=== PATIENT | male | born 1970 | race Caucasian/White ===

== ENCOUNTER 2023-05-03 18:01 | Inpatient (IN) ==
--- NOTE | 2023-05-03 18:11 | ED Triage Note ---
Date of Service May 03, 2023 History of Present Illness This patient was briefly evaluated while in triage. An abbreviated physical exam was performed. This patient is a 52-year-old Male who presents to the ED for evaluation of sent by Dr. Rosas vomiting x "a few days," anorexia dark brown no abdominal pain +ETOH, was drinking today - bourbon, heavy drinker on Suboxone Physical Exam GENERAL: ambulatory into triage, smells of ETOH, slurred speech CARDIOVASCULAR: RRR RESPIRATORY: CTA ABDOMEN: BS x 4. Nontender to palpation. Initial orders for labs and / or imaging were placed and patient was placed in the waiting area until a bed is available. Please see further documentation for the full ED course. MDM / Impression Impression Impression: Metabolic acidosis, increased anion gap (IAG), High serum osmolar gap, Hypoxia, Alcohol abuse with withdrawal
[2023-05-03] MEDS ORDERED: SODIUM CHLORIDE 0.9% 1000ML 1,000 ML IV SCH (18:12)
[2023-05-03 18:50] LABS: Appearance Urine Clear (Clear); Bacteria Urine Automated Negative (Negative); Blood Urine Negative (Negative); Color Urine Dark Yellow; Glucose Urine UA Negative (Negative); Ketones Urine 2+ (Negative); Leukocyte Esterase Urine Negative (Negative); Nitrite Urine Positive (Negative); Protein Urine Trace (Negative); RBC Urine Automated 0-4 /hpf (0-4); Specific Gravity Urine 1.015 (1.000-1.030); Urobilinogen Urine Negative (Negative)
[2023-05-03] MEDS ORDERED: ONDANSETRON INJ 2 MG/ML 2 ML VIAL IV STA (18:53)
[2023-05-03 18:54] LABS: Bilirubin Urine 1+ (Negative)
[2023-05-03 19:03] LABS: Albumin Globulin Ratio 1.4 (0.9-2); Albumin Level 3.7 gm/dl (3.4-5.0); Bilirubin,Total 2.7 mg/dl (0.2-1.0); Calcium 9.2 mg/dl (8.6-10.3); Creatinine Clr Calc Pharmacy 241.6 ml/min; Est GFR (African American) 146.5 ml/min; Est GFR (Non-African American) 126.4 ml/min; Globulin 2.7 gm/dl (2.5-4.0); Potassium 3.5 mmol/L (3.5-5.1); Total Protein 6.4 gm/dl (6.0-8.3)
[2023-05-03 19:12] LABS: Basophils # (auto) 0.04 K/uL (0-0.2); Basophils % (auto) 0.7 %; Eosinophils # (auto) 0.15 K/uL (0-0.50); Eosinophils % (auto) 2.7 %; Hematocrit (blood only) 31.4 % (42.0-52.0); Immature Granulocytes # (auto) 0.04 K/uL (0.01-0.20); Immature Granulocytes % (auto) 0.7 %; Lymphocytes # (auto) 0.72 K/uL (1.2-3.4); Lymphocytes % (auto) 12.8 %; Mean Corpuscular Hemoglobin 37.4 pg (25.0-34.0); Mean Corpuscular Volume 106.8 fL (80.0-100.0); Mean Platelet Volume 11.4 fL (9.4-12.4); Monocytes # (auto) 0.68 K/uL (0.11-0.59); Monocytes % (auto) 12.1 %; Platelet Count 67 K/uL (130-400); Platelet Estimate Decreased (Normal); Polychromasia 1+; RDW Standard Deviation 54.8 fL (36.4-46.3); Red Blood Count 2.94 M/uL (4.70-6.10); Stomatocytes 2+; White Blood Count 5.63 K/ul (4.8-10.8)
[2023-05-03 19:23] LABS: Partial Thromboplastin Ratio 0.9; Partial Thromboplastin Time 25.4 Seconds (21.0-31.0); Prothrombin Time 10.6 Seconds (9.0-12.0)
[2023-05-03 19:36] LABS: Magnesium 1.6 mg/dl (1.7-2.4)
[2023-05-03] MEDS ORDERED: OPTIRAY 320 500ml IV ONE (19:41)
[2023-05-03 19:57] LABS: Amphetamines+Metham, Urine Neg (Neg); Barbiturates, Urine Neg (Neg); Benzodiazepine, Urine Neg (Neg); Cocaine, Urine Neg (Neg); MDMA (Ecstacy), Urine Pos (Neg); Methadone, Urine Neg (Neg); Opiate, Urine Neg (Neg); Phencyclidine, Urine Neg (Neg)
[2023-05-03] MEDS ORDERED: LORazepam 2 MG/1 ML VIAL IV STA ×2 (20:04→21:38)
[2023-05-03] MEDS ORDERED: CEROVITE ADV FORMULA TAB PO STA (20:04)
[2023-05-03] MEDS ORDERED: THIAMINE HCL 100 MG, FOLIC ACID 1 MG in SODIUM CHLORIDE 0.9% 1000ML 1,000 ML IV STA (20:04)
[2023-05-03] MEDS ORDERED: FOMEPIZOLE 1,500MG/1.5ML VIAL IV STA (20:06)
--- NOTE | 2023-05-03 20:17 | CT Scan Report ---
Exam(s): CT HEAD Without Contrast EXAM: CT Head Without Intravenous Contrast CLINICAL HISTORY: Reason for exam: ams. TECHNIQUE: Axial computed tomography images of the head/brain without intravenous contrast. Automated exposure control was utilized for the study. A dose lowering technique was utilized adhering to the principles of ALARA. COMPARISON: No relevant prior studies available. FINDINGS: No acute intracranial hemorrhage. No midline shift or mass effect. The territorial reyez-white matter differentiation is maintained throughout. The ventricles and sulci are commensurate with age. The visualized orbits appear grossly unremarkable. The calvarium is intact. Paranasal sinus mucosal thickening. IMPRESSION: No acute intracranial hemorrhage, midline shift, or mass effect. Electronically signed by: Hammad Freeman MD 05/03/23 20:17 PM
--- NOTE | 2023-05-03 20:23 | CT Scan Report ---
Exam(s): CT ABDOMEN + PELVIS With Contrast IV Amt: 114ml optiray 320 EXAM: CT Abdomen and Pelvis With Intravenous Contrast CLINICAL HISTORY: Reason for exam: nv. TECHNIQUE: Axial computed tomography images of the abdomen and pelvis with intravenous contrast. Automated exposure control was utilized for the study. A dose lowering technique was utilized adhering to the principles of ALARA. CONTRAST: Patient received 114ml optiray 320 of IV contrast COMPARISON: No relevant prior studies available. FINDINGS: Lung bases: Unremarkable. No mass. No consolidation. ABDOMEN: Liver: Severe hepatic steatosis. Gallbladder and bile ducts: Unremarkable. No calcified stones. No ductal dilation. Pancreas: Unremarkable. No mass. No ductal dilation. Spleen: Unremarkable. No splenomegaly. Adrenals: Unremarkable. No mass. 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 RIGHT renal cysts measuring up to 15 mm. No hydronephrosis. Stomach and bowel: Unremarkable. No obstruction. No mucosal thickening. PELVIS: Appendix: No findings to suggest acute appendicitis. Bladder: Unremarkable. No mass. Reproductive: Unremarkable as visualized. ABDOMEN and PELVIS: Intraperitoneal space: Unremarkable. No free air. No significant fluid collection. Bones/joints: Degenerative changes of the spine. No acute fracture. No dislocation. Soft tissues: Unremarkable. Vasculature: Atherosclerotic changes of the aorta. No abdominal aortic aneurysm. Lymph nodes: Unremarkable. No enlarged lymph nodes. IMPRESSION: No acute diverticulitis. No small bowel obstruction. No free intraperitoneal air. Electronically signed by: Hammad Freeman MD 05/03/23 20:21 PM
--- NOTE | 2023-05-03 20:28 | CT Scan Report ---
Exam(s): CTA CHEST IV Amt: 114ml optiray 320 EXAM: CT Angiography Chest With Intravenous Contrast CLINICAL HISTORY: Reason for exam: hypoxia. TECHNIQUE: Axial computed tomographic angiography images of the chest with intravenous contrast. Automated exposure control was utilized for the study. A dose lowering technique was utilized adhering to the principles of ALARA. MIP reconstructed images were created and reviewed. COMPARISON: No relevant prior studies available. FINDINGS: LUNGS: No focal consolidation, pleural effusion, or pneumothorax. HEART: Within normal limits. VASCULATURE: No large or central pulmonary embolism. Evaluation is limited due to suboptimal contrast bolus timing. The need for repeat exam should be determined clinically. THYROID: Within normal limits. MEDIASTINUM + LYMPH NODES: There are no pathologically enlarged mediastinal, hilar, or axillary lymph nodes. SUPERIOR ABDOMEN: Severe hepatic steatosis. MUSCULOSKELETAL: Within normal limits. IMPRESSION: No large or central pulmonary embolism. Evaluation is limited due to suboptimal contrast bolus timing. The need for repeat exam should be determined clinically. No focal infiltrate, pleural effusion, or pneumothorax. Electronically signed by: Hammad Freeman MD 05/03/23 20:27 PM
[2023-05-03] MEDS ORDERED: FOMEPIZOLE IV ONE (20:30)
[2023-05-03] MEDS ORDERED: DEXTROSE 5% IV ONE (20:30)
[2023-05-03 20:53] LABS: Base Excess ABG -4.8 mEq/L (-9-1.8); HCO3 ABG 21 mmol/L (19-24); Oxygen Saturation ABG 97.1 % (90-95); PCO2 ABG 41 mmHg (35-46); PO2 ABG 91 mmHg (80-95); pH ABG 7.32 (7.35-7.45)
[2023-05-03 20:54] LABS: Allen Test Pos (Pos)
--- NOTE | 2023-05-03 21:32 | Emergency Department Note ---
History of Present Illness General Chief complaint: Vomiting Stated complaint: VOMITING, REF BY DOC Time Seen by Provider: 05/03/23 18:52 History of Present Illness Provider complaint: Nausea and vomiting Onset (ago): day(s) 2 52-year-old male presents emergency department with his parents who he calls his "roommates". Patient reports that he has been vomiting for the last 2 days. He reports that the vomit is very brown in nature. No hematemesis coffee-ground emesis or bilious vomiting. Patient reports he drinks alcohol daily. He reports 1 to 2 pints of bourbon daily. He reports that he uses a home breathalyzer that he owns to keep his alcohol level less than 100 so he can "function". Patient also reports some difficulty breathing. No cough. Home Medications Medication Instructions Recorded Confirmed Type buprenorphine 8 mg-naloxone 2 mg 1 ea buccal BID 01/27/20 05/03/23 History sublingual film allopurinol 300 mg tablet 300 mg PO DAILY #90 tabs 04/12/23 05/03/23 Rx bupropion HCl 150 mg tablet,12 hr 150 mg PO QPM 04/12/23 05/03/23 History sustained-release carvedilol 6.25 mg tablet 6.25 mg PO QPM 04/12/23 05/03/23 History cyanocobalamin (vitamin B-12) 500 mcg PO .TODAY 05/03/23 05/03/23 History 1,000 mcg tablet (Vitamin B-12) Allergies Allergy/AdvReac Type Severity Reaction Status Date / Time Penicillins Allergy Verified 04/12/23 13:57 Past Med/Surg History Medical History Hypercholesterolemia Hypertension URI (upper respiratory infection) Surgical History History of oral surgery History of vasectomy Status post LASIK surgery Family History Father Prostate cancer Grandfather (Maternal) Myocardial infarction Aneurysm Grandfather (Paternal) Myocardial infarction Denies family history of Ovarian cancer Breast cancer Colorectal cancer Social History (Updated 05/03/23 @ 21:38 by Ben Suazo MD) Smoking Status: Former smoker Second Hand Exposure: No; Do You Dip or Chew Tobacco: No; Hx Alcohol Use: Yes Alcohol type: hard liquor Alcohol Intake Frequency: 2-4 x/Month Alcohol Intake Frequency Comment: daily 1-2 pts Hx Substance Use: No marital status: Current Living Situation: Parent current occupational status: employed Feels Safe at Home: Yes caffeine: Yes Dental Care, Regularly: Yes Physical Activity Frequency: Daily Physical Activity Frequency Comment: Walking Seatbelt Use: always Sunscreen Use: No Physical Exam Vital Signs Vital Signs - 24 hr 05/03/23 18:08 05/03/23 19:16 05/03/23 19:15 Temperature 36.5 C Temperature Source Temporal Artery Scan Pulse Rate 125 H 117 H 117 H Respiratory Rate 20 13 Respiratory Effort / Characteristics Non-Labored Respiratory Depth Normal Blood Pressure 175/103 H 170/98 H Blood Pressure Mean 127 122 Pulse Oximetry 91 93 Oxygen Delivery Method Room Air Nasal Cannula Oxygen Flow Rate 2 Sepsis Recent Fever Within 48 Hours No Sepsis New/Unexplained Change in Mental Status N/A Sepsis Action Taken by Nursing No Action Required 05/03/23 19:15 05/03/23 19:30 05/03/23 20:03 Temperature Temperature Source Pulse Rate 117 H 133 H Respiratory Rate 17 21 Respiratory Effort / Characteristics Respiratory Depth Blood Pressure 174/99 H Blood Pressure Mean 124 Pulse Oximetry 88 L 95 Oxygen Delivery Method Room Air Nasal Cannula Oxygen Flow Rate 2 Sepsis Recent Fever Within 48 Hours Sepsis New/Unexplained Change in Mental Status Sepsis Action Taken by Nursing 05/03/23 20:30 05/03/23 21:00 05/03/23 21:30 Temperature Temperature Source Pulse Rate 125 H 123 H 118 H Respiratory Rate 23 15 14 Respiratory Effort / Characteristics Respiratory Depth Blood Pressure 169/102 H 153/87 H 150/86 H Blood Pressure Mean 124 109 107 Pulse Oximetry 95 91 93 Oxygen Delivery Method Nasal Cannula Nasal Cannula Nasal Cannula Oxygen Flow Rate 2 2 2 Sepsis Recent Fever Within 48 Hours Sepsis New/Unexplained Change in Mental Status Sepsis Action Taken by Nursing 05/03/23 22:00 05/03/23 22:30 05/03/23 23:19 Temperature Temperature Source Pulse Rate 118 H 120 H 120 H Respiratory Rate 15 17 Respiratory Effort / Characteristics Respiratory Depth Blood Pressure 168/92 H Blood Pressure Mean 117 Pulse Oximetry 95 94 Oxygen Delivery Method Nasal Cannula Nasal Cannula Oxygen Flow Rate 2 2 Sepsis Recent Fever Within 48 Hours Sepsis New/Unexplained Change in Mental Status Sepsis Action Taken by Nursing 05/03/23 23:00 05/03/23 23:30 Temperature Temperature Source Pulse Rate 121 H 121 H Respiratory Rate 17 15 Respiratory Effort / Characteristics Respiratory Depth Blood Pressure 172/93 H 155/90 H Blood Pressure Mean 119 111 Pulse Oximetry 95 93 Oxygen Delivery Method Nasal Cannula Nasal Cannula Oxygen Flow Rate 3 3 Sepsis Recent Fever Within 48 Hours Sepsis New/Unexplained Change in Mental Status Sepsis Action Taken by Nursing Physical Exam GENERAL: He is oriented to person, place, and time. He appears well-developed and well-nourished. He does not appear distressed. HENT: Exam performed. - Head: Normocephalic and atraumatic. - Right Ear: External ear normal. No mastoid erythema - Left Ear: External ear normal. No mastoid erythema EYES: Conjunctivae and EOM are normal. Pupils are equal, round, and reactive to light. Right eye exhibits no discharge. Left eye exhibits no discharge. No scleral icterus. NECK: Normal range of motion. Neck supple. No JVD present. No tracheal deviation and normal range of motion present. CV: Tachycardic rate, regular rhythm, normal heart sounds and intact distal puls es. There is no peripheral edema. Palpable radial pulses bue. PULM/CHEST: Effort normal and breath sounds normal. No respiratory distress. No stridor. He has no wheezes. He has no rales. ABD: The abdomen is soft. Bowel sounds are normal. He has no distension. No mass is present. There is no tenderness. There is no rebound, no guarding, no Owens's sign and no tenderness at McBurney's point. Rovsig negative. No fluid wave. MUSC/SKEL: Normal range of motion. There is no peripheral edema, tenderness or deformity. NEURO: He is alert and oriented to person, place, and time. He has normal strength. No cranial nerve deficit or sensory deficit. Coordination and gait normal. GCS eye subscore is 4. GCS verbal subscore is 5. GCS motor subscore is 6. Cerebellar tests wnl. SKIN: Skin is warm and dry. He is not diaphoretic. PSYCH: He has a normal mood and affect. Behavior is normal. Judgment and thought content normal. Course Course 1851: The patient was evaluated in room B11. A complete history and physical exam was performed Cardiac monitoring: An order was placed for continuous cardiac monitoring. The monitor shows a rate of 110 with sinus rhythm interpreted by me 1915: Patient became hypoxic on room air supplemental oxygen applied to the patient which improved his oxygen saturation. 1999: Patient became tachycardic into the 130s status post CT. Patient in no respiratory distress. Thought that the patient might be going through alcohol withdrawal Ativan given to the patient. 2029: Patient's heart rates improved slightly with Ativan. Patient states he feels better with Ativan. Labs show white blood cell count 5.63 hemoglobin 11 platelet count 67. Patient's metabolic profile shows a sodium of 132 chloride 88 bicarb 20 anion gap 24 BUN 7 creatinine 0.5. Serum osmolality was measured at 1.6. Serum osmolality calculated at 298.5 producing a osmolar gap of 17.5. Given the patient's history of alcoholism, elevated anion gap, and elevated osmolar gap, the patient was questioned about any toxic alcohol ingestion such as from antifreeze or when she wiper fluid. The patient and family at bedside adamantly denied this. However, given the patient's chronic alcoholism and these lab findings, the patient be treated with fomepizole. Patient will be treated with fomepizole 15 mg/kg IV loading dose. Spoke with pharmacy this and they will create the fomepizole bag. 2101: Vital signs stable on supplemental oxygen via nasal cannula. Patient's vital signs improved status post Ativan. Imaging shows no ICH, no large PE, CT of the abdomen pelvis negative. ABG shows a pH of 7.32. Send out labs for ethylene glycol and methanol ordered. Discussed the case with the [facility] hospitalist Dr. Zhao who will admit the patient to his service. The patient should get maintenance doses of fomepizole 10 mg/kg IV piggyback every 12 hours for four doses starting 12 hours after the loading dose. The fomepizole should continue until the ethylene glycol or methanol levels are confirmed to be less than 20. If there is more than 4 doses of maintanence fomepizole needed to be given the dose of fomepizole should be increased to 15 mg/kg every 12 hours. Administered Medications Discontinued Medications Fomepizole (Fomepizole 1 Gm/Ml 1.5 Gm Vial) 1,878 mg IV NOW STA Stop: 05/03/23 20:07 Last Admin: 05/03/23 20:46 Dose: Not Given Documented By: TAVON Sodium Chloride (Nss 1000ml) 1,000 mls @ 999 mls/hr IV .Q1H1M KAYLA Stop: 05/03/23 19:12 Last Infusion: 05/03/23 20:17 Dose: 0 mls/hr Documented By: Admin: 05/03/23 19:09 Dose: 999 mls/hr Documented By: TAVON Thiamine HCl 100 mg/ Folic (Acid 1 mg/ Sodium Chloride) 1,001.2 mls @ 500 mls/hr IV .Q2H1M STA; Protocol Stop: 05/03/23 22:04 Last Infusion: 05/03/23 23:37 Dose: 0 mls/hr Documented By: Admin: 05/03/23 21:21 Dose: 500 mls/hr Documented By: TAVON Fomepizole 1,878 mg/ Dextrose 101.878 mls @ 200 mls/hr IV NOW ONE Stop: 05/03/23 21:00 Last Infusion: 05/03/23 21:20 Dose: 0 mls/hr Documented By: Admin: 05/03/23 20:38 Dose: 200 mls/hr Documented By: TAVON Ioversol (Optiray 320 500ml) 114 ml IV ONCE ONE Stop: 05/03/23 19:42 Last Admin: 05/03/23 19:41 Dose: 114 ml Documented By: RAFY Lorazepam (Lorazepam 2 Mg/1 Ml Vial) 1 mg IV NOW STA Stop: 05/03/23 20:05 Last Admin: 05/03/23 20:38 Dose: 1 mg Documented By: TAVON Lorazepam (Lorazepam 2 Mg/1 Ml Vial) 1 mg IV NOW STA Stop: 05/03/23 21:39 Last Admin: 05/03/23 21:57 Dose: 1 mg Documented By: TAVON Multivitamins/Minerals (Cerovite Adv Formula Tab) 1 tab PO ONE STA Stop: 05/03/23 20:05 Last Admin: 05/03/23 20:39 Dose: 1 tab Documented By: TAVON Ondansetron HCl (Ondansetron Inj 2 Mg/Ml 2 Ml Vial) 4 mg IV NOW STA Stop: 05/03/23 18:54 Last Admin: 05/03/23 19:10 Dose: 4 mg Documented By: TAVON Critical Care Time Critical Care Time: Yes Total Critical Care Time: 50 I have personally spent greater than 50 minutes of critical care time in the direct management of this patient. This includes bedside care, interpretation of diagnostic studies, and testing, discussion with consultants, patient, and family members, and other required patient management activities. This 50 minutes is in excess of all separately billable procedures. Medical Decision Making Laboratory Data Attestation: I reviewed the patient's lab results. 05/03/23 18:23 05/03/23 18:23 Lab Results 05/03/23 05/03/23 05/03/23 Range/Units 17:23 18:23 18:23 WBC 5.63 (4.8-10.8) K/ul RBC 2.94 L (4.70-6.10) M/uL Hgb 11.0 L (14.0-18.0) g/dl Hct 31.4 L (42.0-52.0) % MCV 106.8 H (80.0-100.0) fL MCH 37.4 H (25.0-34.0) pg MCHC 35.0 (32.0-36.0) g/dL RDW Std Deviation 54.8 H (36.4-46.3) fL RDW Coeff of Jordan 14.0 (11.5-14.5) % Plt Count 67 L (130-400) K/uL MPV 11.4 (9.4-12.4) fL Immature Gran % (Auto) 0.7 % Neut % (Auto) 71.0 % Lymph % (Auto) 12.8 % Reynolds % (Auto) 12.1 % Eos % (Auto) 2.7 % Baso % (Auto) 0.7 % Neut # (Auto) 4.00 (1.40-6.50) K/uL Lymph # (Auto) 0.72 L (1.2-3.4) K/uL Reynolds # (Auto) 0.68 H (0.11-0.59) K/uL Eos # (Auto) 0.15 (0-0.50) K/uL Baso # (Auto) 0.04 (0-0.2) K/uL Immature Gran # (Auto) 0.04 (0.01-0.20) K/uL Platelet Estimate Decreased L (Normal) Polychromasia 1+ Stomatocytes 2+ PT 10.6 (9.0-12.0) Seconds INR 1.0 (0.9-1.1) APTT 25.4 (21.0-31.0) Seconds PTT Ratio 0.9 ABG pH 7.32 L (7.35-7.45) ABG pCO2 41 (35-46) mmHg ABG pO2 91 (80-95) mmHg ABG HCO3 21 (19-24) mmol/L ABG O2 Saturation 97.1 H (90-95) % ABG Base Excess -4.8 (-9-1.8) mEq/L Radhames Test Pos (Pos) Oxygen Given 4 L Sodium (136-145) mmol/L Potassium (3.5-5.1) mmol/L Chloride (98-107) mmol/L Carbon Dioxide (21-32) mmol/L Anion Gap (3-11) BUN (6-23) mg/dl Creatinine (0.6-1.4) mg/dl Est Cr Clr Drug Dosing ml/min Est GFR ( Amer) ml/min Est GFR (Non-Af Amer) ml/min BUN/Creatinine Ratio (10-20) Glucose (70-99(Fasting)) mg/dl Osmolality (280-300) mOsm/kg Calcium (8.6-10.3) mg/dl Magnesium (1.7-2.4) mg/dl Total Bilirubin (0.2-1.0) mg/dl AST (13-39) U/L ALT (7-52) U/L Alkaline Phosphatase (34-104) U/L Total Protein (6.0-8.3) gm/dl Albumin (3.4-5.0) gm/dl Globulin (2.5-4.0) gm/dl Albumin/Globulin Ratio (0.9-2) Lipase (11-82) U/L Urine Color Urine Appearance (Clear) Urine pH (4.5-7.5) Ur Specific [place] (1.000-1.030) Urine Protein (Negative) Urine Glucose (UA) (Negative) Urine Ketones (Negative) Urine Blood (Negative) Urine Nitrite (Negative) Urine Bilirubin (Negative) Urine Urobilinogen (Negative) Ur Leukocyte Esterase (Negative) Urine WBC (Auto) (0-5) /hpf Urine RBC (Auto) (0-4) /hpf U Hyaline Cast (Auto) (0-5) /lpf U Epithel Cells (Auto) (0-5) /lpf Urine Bacteria (Auto) (Negative) Urine Opiates Screen (Neg) Ur Methadone, Qual (Neg) Urine Barbiturates (Neg) Ur Phencyclidine (PCP) (Neg) U Amphetamin/Meth Scrn (Neg) MDMA (Ecstasy) Screen (Neg) U Benzodiazepines Scrn (Neg) Ur Cocaine Metabolite (Neg) U Marijuana (THC) Screen (Neg) Ethyl Alcohol mg/dL (<10.0) mg/dl SARS-CoV-2, RNA, NAAT (NEGATIVE) 05/03/23 05/03/23 05/03/23 Range/Units 18:23 18:23 18:23 WBC (4.8-10.8) K/ul RBC (4.70-6.10) M/uL Hgb (14.0-18.0) g/dl Hct (42.0-52.0) % MCV (80.0-100.0) fL MCH (25.0-34.0) pg MCHC (32.0-36.0) g/dL RDW Std Deviation (36.4-46.3) fL RDW Coeff of Jordan (11.5-14.5) % Plt Count (130-400) K/uL MPV (9.4-12.4) fL Immature Gran % (Auto) % Neut % (Auto) % Lymph % (Auto) % Reynolds % (Auto) % Eos % (Auto) % Baso % (Auto) % Neut # (Auto) (1.40-6.50) K/uL Lymph # (Auto) (1.2-3.4) K/uL Reynolds # (Auto) (0.11-0.59) K/uL Eos # (Auto) (0-0.50) K/uL Baso # (Auto) (0-0.2) K/uL Immature Gran # (Auto) (0.01-0.20) K/uL Platelet Estimate (Normal) Polychromasia Stomatocytes PT (9.0-12.0) Seconds INR (0.9-1.1) APTT (21.0-31.0) Seconds PTT Ratio ABG pH (7.35-7.45) ABG pCO2 (35-46) mmHg ABG pO2 (80-95) mmHg ABG HCO3 (19-24) mmol/L ABG O2 Saturation (90-95) % ABG Base Excess (-9-1.8) mEq/L Radhames Test (Pos) Oxygen Given Sodium 132 L (136-145) mmol/L Potassium 3.5 (3.5-5.1) mmol/L Chloride 88 L (98-107) mmol/L Carbon Dioxide 20 L (21-32) mmol/L Anion Gap 24 H (3-11) BUN 7 (6-23) mg/dl Creatinine 0.50 L (0.6-1.4) mg/dl Est Cr Clr Drug Dosing 241.6 ml/min Est GFR ( Amer) 146.5 ml/min Est GFR (Non-Af Amer) 126.4 ml/min BUN/Creatinine Ratio 14.0 (10-20) Glucose 86 (70-99(Fasting)) mg/dl Osmolality (280-300) mOsm/kg Calcium 9.2 (8.6-10.3) mg/dl Magnesium 1.6 L (1.7-2.4) mg/dl Total Bilirubin 2.7 H (0.2-1.0) mg/dl AST 147 H (13-39) U/L ALT 44 (7-52) U/L Alkaline Phosphatase 151 H (34-104) U/L Total Protein 6.4 (6.0-8.3) gm/dl Albumin 3.7 (3.4-5.0) gm/dl Globulin 2.7 (2.5-4.0) gm/dl Albumin/Globulin Ratio 1.4 (0.9-2) Lipase 19 (11-82) U/L Urine Color Dark Yellow Urine Appearance Clear (Clear) Urine pH 6.0 (4.5-7.5) Ur Specific [place] 1.015 (1.000-1.030) Urine Protein Trace H (Negative) Urine Glucose (UA) Negative (Negative) Urine Ketones 2+ H (Negative) Urine Blood Negative (Negative) Urine Nitrite Positive A (Negative) Urine Bilirubin 1+ H (Negative) Urine Urobilinogen Negative (Negative) Ur Leukocyte Esterase Negative (Negative) Urine WBC (Auto) 1-5 (0-5) /hpf Urine RBC (Auto) 0-4 (0-4) /hpf U Hyaline Cast (Auto) 5-10 H (0-5) /lpf U Epithel Cells (Auto) 10-20 H (0-5) /lpf Urine Bacteria (Auto) Negative (Negative) Urine Opiates Screen (Neg) Ur Methadone, Qual (Neg) Urine Barbiturates (Neg) Ur Phencyclidine (PCP) (Neg) U Amphetamin/Meth Scrn (Neg) MDMA (Ecstasy) Screen (Neg) U Benzodiazepines Scrn (Neg) Ur Cocaine Metabolite (Neg) U Marijuana (THC) Screen (Neg) Ethyl Alcohol mg/dL 126.4 H (<10.0) mg/dl SARS-CoV-2, RNA, NAAT (NEGATIVE) 05/03/23 05/03/23 05/03/23 Range/Units 18:23 19:07 19:20 WBC (4.8-10.8) K/ul RBC (4.70-6.10) M/uL Hgb (14.0-18.0) g/dl Hct (42.0-52.0) % MCV (80.0-100.0) fL MCH (25.0-34.0) pg MCHC (32.0-36.0) g/dL RDW Std Deviation (36.4-46.3) fL RDW Coeff of Jordan (11.5-14.5) % Plt Count (130-400) K/uL MPV (9.4-12.4) fL Immature Gran % (Auto) % Neut % (Auto) % Lymph % (Auto) % Reynolds % (Auto) % Eos % (Auto) % Baso % (Auto) % Neut # (Auto) (1.40-6.50) K/uL Lymph # (Auto) (1.2-3.4) K/uL Reynolds # (Auto) (0.11-0.59) K/uL Eos # (Auto) (0-0.50) K/uL Baso # (Auto) (0-0.2) K/uL Immature Gran # (Auto) (0.01-0.20) K/uL Platelet Estimate (Normal) Polychromasia Stomatocytes PT (9.0-12.0) Seconds INR (0.9-1.1) APTT (21.0-31.0) Seconds PTT Ratio ABG pH (7.35-7.45) ABG pCO2 (35-46) mmHg ABG pO2 (80-95) mmHg ABG HCO3 (19-24) mmol/L ABG O2 Saturation (90-95) % ABG Base Excess (-9-1.8) mEq/L Radhames Test (Pos) Oxygen Given Sodium (136-145) mmol/L Potassium (3.5-5.1) mmol/L Chloride (98-107) mmol/L Carbon Dioxide (21-32) mmol/L Anion Gap (3-11) BUN (6-23) mg/dl Creatinine (0.6-1.4) mg/dl Est Cr Clr Drug Dosing ml/min Est GFR ( Amer) ml/min Est GFR (Non-Af Amer) ml/min BUN/Creatinine Ratio (10-20) Glucose (70-99(Fasting)) mg/dl Osmolality 316 H (280-300) mOsm/kg Calcium (8.6-10.3) mg/dl Magnesium (1.7-2.4) mg/dl Total Bilirubin (0.2-1.0) mg/dl AST (13-39) U/L ALT (7-52) U/L Alkaline Phosphatase (34-104) U/L Total Protein (6.0-8.3) gm/dl Albumin (3.4-5.0) gm/dl Globulin (2.5-4.0) gm/dl Albumin/Globulin Ratio (0.9-2) Lipase (11-82) U/L Urine Color Urine Appearance (Clear) Urine pH (4.5-7.5) Ur Specific [place] (1.000-1.030) Urine Protein (Negative) Urine Glucose (UA) (Negative) Urine Ketones (Negative) Urine Blood (Negative) Urine Nitrite (Negative) Urine Bilirubin (Negative) Urine Urobilinogen (Negative) Ur Leukocyte Esterase (Negative) Urine WBC (Auto) (0-5) /hpf Urine RBC (Auto) (0-4) /hpf U Hyaline Cast (Auto) (0-5) /lpf U Epithel Cells (Auto) (0-5) /lpf Urine Bacteria (Auto) (Negative) Urine Opiates Screen Neg (Neg) Ur Methadone, Qual Neg (Neg) Urine Barbiturates Neg (Neg) Ur Phencyclidine (PCP) Neg (Neg) U Amphetamin/Meth Scrn Neg (Neg) MDMA (Ecstasy) Screen Pos H (Neg) U Benzodiazepines Scrn Neg (Neg) Ur Cocaine Metabolite Neg (Neg) U Marijuana (THC) Screen Neg (Neg) Ethyl Alcohol mg/dL (<10.0) mg/dl SARS-CoV-2, RNA, NAAT NEGATIVE (NEGATIVE) Imaging Data Attestation: I personally reviewed and interpreted this imaging study as follows: My Impression: Chest x-ray negative. Airway clear. No pneumothorax. No consolidation. No cardiomegaly or cephalization.. No free air under the diaphragm. No fractures of the skeletal structures. Radiologist's Impression: Abdomen/Pelvis CT 05/03/23 19:20 Exam(s): CT ABDOMEN + PELVIS With Contrast IV Amt: 114ml optiray 320 EXAM: CT Abdomen and Pelvis With Intravenous Contrast CLINICAL HISTORY: Reason for exam: nv. TECHNIQUE: Axial computed tomography images of the abdomen and pelvis with intravenous contrast. Automated exposure control was utilized for the study. A dose lowering technique was utilized adhering to the principles of ALARA. CONTRAST: Patient received 114ml optiray 320 of IV contrast COMPARISON: No relevant prior studies available. FINDINGS: Lung bases: Unremarkable. No mass. No consolidation. ABDOMEN: Liver: Severe hepatic steatosis. Gallbladder and bile ducts: Unremarkable. No calcified stones. No ductal dilation. Pancreas: Unremarkable. No mass. No ductal dilation. Spleen: Unremarkable. No splenomegaly. Adrenals: Unremarkable. No mass. 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 RIGHT renal cysts measuring up to 15 mm. No hydronephrosis. Stomach and bowel: Unremarkable. No obstruction. No mucosal thickening. PELVIS: Appendix: No findings to suggest acute appendicitis. Bladder: Unremarkable. No mass. Reproductive: Unremarkable as visualized. ABDOMEN and PELVIS: Intraperitoneal space: Unremarkable. No free air. No significant fluid collection. Bones/joints: Degenerative changes of the spine. No acute fracture. No dislocation. Soft tissues: Unremarkable. Vasculature: Atherosclerotic changes of the aorta. No abdominal aortic aneurysm. Lymph nodes: Unremarkable. No enlarged lymph nodes. IMPRESSION: No acute diverticulitis. No small bowel obstruction. No free intraperitoneal air. Electronically signed by: Hammad Freeman MD 05/03/23 20:21 PM Chest CTA 05/03/23 19:20 Exam(s): CTA CHEST IV Amt: 114ml optiray 320 EXAM: CT Angiography Chest With Intravenous Contrast CLINICAL HISTORY: Reason for exam: hypoxia. TECHNIQUE: Axial computed tomographic angiography images of the chest with intravenous contrast. Automated exposure control was utilized for the study. A dose lowering technique was utilized adhering to the principles of ALARA. MIP reconstructed images were created and reviewed. COMPARISON: No relevant prior studies available. FINDINGS: LUNGS: No focal consolidation, pleural effusion, or pneumothorax. HEART: Within normal limits. VASCULATURE: No large or central pulmonary embolism. Evaluation is limited due to suboptimal contrast bolus timing. The need for repeat exam should be determined clinically. THYROID: Within normal limits. MEDIASTINUM + LYMPH NODES: There are no pathologically enlarged mediastinal, hilar, or axillary lymph nodes. SUPERIOR ABDOMEN: Severe hepatic steatosis. MUSCULOSKELETAL: Within normal limits. IMPRESSION: No large or central pulmonary embolism. Evaluation is limited due to suboptimal contrast bolus timing. The need for repeat exam should be determined clinically. No focal infiltrate, pleural effusion, or pneumothorax. Electronically signed by: Hammad Freeman MD 05/03/23 20:[address] 05/03/23 19:36 Exam(s): CT HEAD Without Contrast EXAM: CT Head Without Intravenous Contrast CLINICAL HISTORY: Reason for exam: ams. TECHNIQUE: Axial computed tomography images of the head/brain without intravenous contrast. Automated exposure control was utilized for the study. A dose lowering technique was utilized adhering to the principles of ALARA. COMPARISON: No relevant prior studies available. FINDINGS: No acute intracranial hemorrhage. No midline shift or mass effect. The territorial reyez-white matter differentiation is maintained throughout. The ventricles and sulci are commensurate with age. The visualized orbits appear grossly unremarkable. The calvarium is intact. Paranasal sinus mucosal thickening. IMPRESSION: No acute intracranial hemorrhage, midline shift, or mass effect. Electronically signed by: Hammad Freeman MD 05/03/23 20:17 PM [facility] Narrative 1852: The patient was evaluated in room B11. A complete history and physical exam was performed Cardiac monitoring: An order was placed for continuous cardiac monitoring. The monitor shows a rate of 110 with sinus rhythm interpreted by me 1915: Patient became hypoxic on room air supplemental oxygen applied to the patient which improved his oxygen saturation. 1999: Patient became tachycardic into the 130s status post CT. Patient in no respiratory distress. Thought that the patient might be going through alcohol withdrawal Ativan given to the patient. 2029: Patient's heart rates improved slightly with Ativan. Patient states he feels better with Ativan. Labs show white blood cell count 5.63 hemoglobin 11 platelet count 67. Patient's metabolic profile shows a sodium of 132 chloride 88 bicarb 20 anion gap 24 BUN 7 creatinine 0.5. Serum osmolality was measured at 1.6. Serum osmolality calculated at 298.5 producing a osmolar gap of 17.5. Given the patient's history of alcoholism, elevated anion gap, and elevated osmolar gap, the patient was questioned about any toxic alcohol ingestion such as from antifreeze or when she wiper fluid. The patient and family at bedside adamantly denied this. However, given the patient's chronic alcoholism and these lab findings, the patient be treated with fomepizole. Patient will be treated with fomepizole 15 mg/kg IV loading dose. Spoke with pharmacy this and they will create the fomepizole bag. 2101: Vital signs stable on supplemental oxygen via nasal cannula. Patient's vital signs improved status post Ativan. Imaging shows no ICH, no large PE, CT of the abdomen pelvis negative. ABG shows a pH of 7.32. Send out labs for et hylene glycol and methanol ordered. Discussed the case with the [facility] hospitalist Dr. Zhao who will admit the patient to his service. The patient should get maintenance doses of fomepizole 10 mg/kg IV piggyback every 12 hours for four doses starting 12 hours after the loading dose. The fomepizole should continue until the ethylene glycol or methanol levels are confirmed to be less than 20. If there is more than 4 doses of maintanence fomepizole needed to be given the dose of fomepizole should be increased to 15 mg/kg every 12 hours. Impression & Plan Metabolic acidosis, increased anion gap (IAG), High serum osmolar gap, Hypoxia, Alcohol abuse with withdrawal Discharge Plan Visit Data Chief Complaint: Vomiting Stated Complaint: VOMITING, REF BY DOC ED Provider: Ben Suazo Discharge Problem: Metabolic acidosis, increased anion gap (IAG), High serum osmolar gap, Hypoxia, Alcohol abuse with withdrawal Patient Disposition: Admitted As Inpatient Forms Stand Alone Forms: My [facility] Prescriptions Prescriptions: No Action bupropion HCl 150 mg tablet sustained-release 12 hr 150 mg PO QPM carvedilol 6.25 mg tablet 6.25 mg PO QPM Rx Instructions: must administer with a meal/food allopurinol 300 mg tablet 300 mg PO DAILY Qty: 90 3RF buprenorphine-naloxone 8-2 mg film 1 ea BUCCAL BID Patient Comments: Take 1/2 film strip sublingually twice daily cyanocobalamin (vitamin B-12) [Vitamin B-12] 1,000 mcg Tablet 500 mcg PO .TODAY Referrals Referrals: Soni Rosas MD [Primary Care Provider] -
[2023-05-04] MEDS ORDERED: ACETAMINOPHEN 325 MG TAB PO PRN (01:07)
[2023-05-04] MEDS ORDERED: ALUMINUM/MAGNESIUM SUSP 30 ML UDC PO PRN (01:07)
--- NOTE | 2023-05-04 06:08 | History & Physical Report ---
Date of Service May 04, 2023 Assessment & Plan (1) Acute alcoholic gastritis: Plan: Patient presents with refractory nausea and vomiting and vomiting brown vomitus. Hemoglobin stable at 11. Obtain follow-up CBC in a.m. No evidence of acute bleed at this time but patient could have underlying acute gastritis Start patient on IV PPI therapy with Protonix. If a.m. CBC shows any evidence of acute bleed, consult GI in a.m. (2) Metabolic acidosis, increased anion gap (IAG): Plan: Patient found to have elevated anion gap of 24 with metabolic acidosis. Likely secondary to volume depletion. Patient also found to have osmolar gap and being treated with fomepizole. (3) High serum osmolar gap: Plan: Patient measured osmolality 316 calculated osmolality is 299 producing osmolar gap of 17 Patient has a history of alcohol dependence and the presence of elevated anion gap and elevated osmolar gap, possible ethylene glycol or other alcohol ingestion suspected and patient was given a dose of fomepizole in the ED. Ethylene glycol level sent. Remaining dose of fomepizole 10 mg/kg dose every 12 hours for 4 doses to be continued every 12 hours after the loading dose. Discussed with pharmacy regarding this Fortunately renal function within normal limits goes against any ethylene glycol toxicity at this time. (4) Alcohol abuse with withdrawal: Plan: Patient admits to daily alcohol consumption Patient will be placed on CIWA protocol with close monitoring IV Protonix for acute gastritis Check CBC in a.m. (5) Elevated transaminase level: Plan: Patient found to have elevated transaminase level with AST being 147 and ALT being 44 consistent with alcohol use. Alcohol cessation discussed with patient (6) Benign essential hypertension: Plan: Continue home dose of carvedilol . Monitor blood pressure trend and titrate meds as tolerated. (7) Gout: Plan: No evidence of acute exacerbation noted continue allopurinol at home dose Check uric acid level Admission and Anticipated Discharge Date Admission Date: May 03, 2023 History of Present Illness Chief Complaint: Patient presents to ED with nausea and vomiting Primary Care Provider: Soni Rosas MD This is a 52-year-old male with past medical history significant history of hyp ertension, hyperuricemia, history of alcohol dependence who presents to the emergency department complaints of refractory nausea and vomiting symptoms. Patient reports that he has been having significant nausea with vomiting symptoms over the past 2 days and this is turned to brown vomitus and hence patient became concerned and presents to ED for further evaluation. Patient admits to alcohol consumption on a daily basis and he consumes almost a pint of bourbon every day. Patient denies any active hematemesis or bilious vomiting and also reports that he uses a breathalyzer at home to keep his alcohol level less than 100 but continues to consume alcohol on a daily basis so he can function including drive safely. Patient otherwise denies any chest pain but describes exertional dyspnea symptoms. No fevers or chills reported. Patient was evaluated in the ED and his initial labs shows a sodium level of 132 along with a hemoglobin of 11 and patient was found to have anion gap of 24 along with a osmolar gap in the ED and was given a dose of fomepizole for suspected ethylene glycol consumption. Patient however denies taking any other alcohol other than his bourbon. Allergies Allergy/AdvReac Type Severity Reaction Status Date / Time Penicillins Allergy Verified 04/12/23 13:57 Home Medications Medication Instructions Recorded Confirmed Type buprenorphine 8 mg-naloxone 2 mg 1 ea buccal BID 01/27/20 05/03/23 History sublingual film allopurinol 300 mg tablet 300 mg PO DAILY #90 tabs 04/12/23 05/03/23 Rx bupropion HCl 150 mg tablet,12 hr 150 mg PO QPM 04/12/23 05/03/23 History sustained-release carvedilol 6.25 mg tablet 6.25 mg PO QPM 04/12/23 05/03/23 History cyanocobalamin (vitamin B-12) 500 mcg PO .TODAY 05/03/23 05/03/23 History 1,000 mcg tablet (Vitamin B-12) Past Med/Surg History Medical History Hypercholesterolemia Hypertension URI (upper respiratory infection) Surgical History History of oral surgery History of vasectomy Status post LASIK surgery Family History Father Prostate cancer Grandfather (Maternal) Myocardial infarction Aneurysm Grandfather (Paternal) Myocardial infarction Denies family history of Ovarian cancer Breast cancer Colorectal cancer Social History (Updated 05/03/23 @ 21:38 by Ben Suazo MD) Smoking Status: Former smoker Second Hand Exposure: No; Do You Dip or Chew Tobacco: No; Hx Alcohol Use: Yes Alcohol type: hard liquor Alcohol Intake Frequency: 2-4 x/Month Alcohol Intake Frequency Comment: daily 1-2 pts Hx Substance Use: No Preferred Language: Hebrew Communication Ability: Effective Training Administrator Required: No Beliefs That Will Affect Care: None marital status: Current Living Situation: Parent Current Living Situation Comment: Living w parents current occupational status: employed Other Information That Helps Us Care for You: No Feels Safe at Home: Yes Safety Concerns: Feels Safe At This Time caffeine: Yes Dental Care, Regularly: Yes Physical Activity Frequency: Daily Physical Activity Frequency Comment: Walking Seatbelt Use: always Sunscreen Use: No Assistive Devices: Denture - Upper and Glasses Assistive Devices Comment: used to wear CPAP Review of Systems Review of Systems: Constitutional-no fever or chills ENT-no blurred vision, no double vision, no epistaxis, Respiratory- mild shortness of breath noted with exertion. No wheezing Cardiac-no palpitations, no chest pain, no syncope GI- pt reports nausea and vomiting, NO diarrhea, melena, -no urinary retention, no urinary incontinence, Musculoskeletal-no joint pain, Skin-no bruising, no rashes, no pruritus Neuro-no isolated weakness, Physical Exam Physical Exam: Head and ENT no thyroid enlargement trachea midline Cardiovascular S1-S2 are normal no S3 Lungs bilateral air entry fair no wheezing Abdomen soft nondistended positive bowel sounds no rebound tenderness Extremity shows minimal edema Neurologically no focal deficits mild asterixis Skin shows no rash no cyanosis Results & Data Results & Data Vital Signs (Past 12 Hours) Vital Signs Temp Pulse Pulse Resp BP BP Pulse Ox 05/04/23 01:12 05/04/23 03:53 37.4 C 130 H 18 173/84 H 92 05/04/23 01:12 37.1 C 124 H 20 175/107 H 90 05/04/23 00:30 123 H 15 160/96 H 92 05/04/23 00:00 123 H 16 160/96 H 92 05/03/23 23:30 121 H 15 155/90 H 93 05/03/23 23:00 121 H 17 172/93 H 95 05/03/23 23:19 120 H 05/03/23 22:30 120 H 17 168/92 H 94 05/03/23 22:00 118 H 15 95 05/03/23 21:30 118 H 14 150/86 H 93 05/03/23 21:00 123 H 15 153/87 H 91 05/03/23 20:30 125 H 23 169/102 H 95 05/03/23 20:03 133 H 21 05/03/23 19:30 117 H 17 174/99 H 95 05/03/23 19:15 88 L 05/03/23 19:15 117 H 05/03/23 19:16 117 H 13 170/98 H 93 O2 Del Method O2 Flow Rate 05/04/23 01:12 Nasal Cannula 3 05/04/23 03:53 Nasal Cannula 2 05/04/23 01:12 Nasal Cannula 3 05/04/23 00:30 Nasal Cannula 3 05/04/23 00:00 Nasal Cannula 3 05/03/23 23:30 Nasal Cannula 3 05/03/23 23:00 Nasal Cannula 3 05/03/23 23:19 05/03/23 22:30 Nasal Cannula 2 05/03/23 22:00 Nasal Cannula 2 05/03/23 21:30 Nasal Cannula 2 05/03/23 21:00 Nasal Cannula 2 05/03/23 20:30 Nasal Cannula 2 05/03/23 20:03 05/03/23 19:30 Nasal Cannula 2 05/03/23 19:15 Room Air 05/03/23 19:15 05/03/23 19:16 Nasal Cannula 2 Laboratory Results Short CBC 05/03/23 Range/Units 18:23 WBC 5.63 (4.8-10.8) K/ul Hgb 11.0 L (14.0-18.0) g/dl Hct 31.4 L (42.0-52.0) % Plt Count 67 L (130-400) K/uL BMP 05/03/23 18:23 Sodium 132 L Potassium 3.5 Chloride 88 L Carbon Dioxide 20 L BUN 7 Creatinine 0.50 L Glucose 86 Calcium 9.2 Liver Function 05/03/23 Range/Units 18:23 Total Bilirubin 2.7 H (0.2-1.0) mg/dl AST 147 H (13-39) U/L ALT 44 (7-52) U/L Alkaline Phosphatase 151 H (34-104) U/L Albumin 3.7 (3.4-5.0) gm/dl Urine 05/03/23 Range/Units 18:23 Urine Color Dark Yellow Urine Appearance Clear (Clear) Urine pH 6.0 (4.5-7.5) Ur Specific [place] 1.015 (1.000-1.030) Urine Protein Trace H (Negative) Urine Glucose (UA) Negative (Negative) Diagnostic Findings Abdomen/Pelvis CT 05/03/23 19:20 Exam(s): CT ABDOMEN + PELVIS With Contrast IV Amt: 114ml optiray 320 EXAM: CT Abdomen and Pelvis With Intravenous Contrast CLINICAL HISTORY: Reason for exam: nv. TECHNIQUE: Axial computed tomography images of the abdomen and pelvis with intravenous contrast. Automated exposure control was utilized for the study. A dose lowering technique was utilized adhering to the principles of ALARA. CONTRAST: Patient received 114ml optiray 320 of IV contrast COMPARISON: No relevant prior studies available. FINDINGS: Lung bases: Unremarkable. No mass. No consolidation. ABDOMEN: Liver: Severe hepatic steatosis. Gallbladder and bile ducts: Unremarkable. No calcified stones. No ductal dilation. Pancreas: Unremarkable. No mass. No ductal dilation. Spleen: Unremarkable. No splenomegaly. Adrenals: Unremarkable. No mass. 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 RIGHT renal cysts measuring up to 15 mm. No hydronephrosis. Stomach and bowel: Unremarkable. No obstruction. No mucosal thickening. PELVIS: Appendix: No findings to suggest acute appendicitis. Bladder: Unremarkable. No mass. Reproductive: Unremarkable as visualized. ABDOMEN and PELVIS: Intraperitoneal space: Unremarkable. No free air. No significant fluid collection. Bones/joints: Degenerative changes of the spine. No acute fracture. No dislocation. Soft tissues: Unremarkable. Vasculature: Atherosclerotic changes of the aorta. No abdominal aortic aneurysm. Lymph nodes: Unremarkable. No enlarged lymph nodes. IMPRESSION: No acute diverticulitis. No small bowel obstruction. No free intraperitoneal air. Electronically signed by: Hammad Freeman MD 05/03/23 20:21 PM Chest CTA 05/03/23 19:20 Exam(s): CTA CHEST IV Amt: 114ml optiray 320 EXAM: CT Angiography Chest With Intravenous Contrast CLINICAL HISTORY: Reason for exam: hypoxia. TECHNIQUE: Axial computed tomographic angiography images of the chest with intravenous contrast. Automated exposure control was utilized for the study. A dose lowering technique was utilized adhering to the principles of ALARA. MIP reconstructed images were created and reviewed. COMPARISON: No relevant prior studies available. FINDINGS: LUNGS: No focal consolidation, pleural effusion, or pneumothorax. HEART: Within normal limits. VASCULATURE: No large or central pulmonary embolism. Evaluation is limited due to suboptimal contrast bolus timing. The need for repeat exam should be determined clinically. THYROID: Within normal limits. MEDIASTINUM + LYMPH NODES: There are no pathologically enlarged mediastinal, hilar, or axillary lymph nodes. SUPERIOR ABDOMEN: Severe hepatic steatosis. MUSCULOSKELETAL: Within normal limits. IMPRESSION: No large or central pulmonary embolism. Evaluation is limited due to suboptimal contrast bolus timing. The need for repeat exam should be determined clinically. No focal infiltrate, pleural effusion, or pneumothorax. Electronically signed by: Hammad Freeman MD 05/03/23 20:[address] 05/03/23 19:36 Exam(s): CT HEAD Without Contrast EXAM: CT Head Without Intravenous Contrast CLINICAL HISTORY: Reason for exam: ams. TECHNIQUE: Axial computed tomography images of the head/brain without intravenous contrast. Automated exposure control was utilized for the study. A dose lowering technique was utilized adhering to the principles of ALARA. COMPARISON: No relevant prior studies available. FINDINGS: No acute intracranial hemorrhage. No midline shift or mass effect. The territorial reyez-white matter differentiation is maintained throughout. The ventricles and sulci are commensurate with age. The visualized orbits appear grossly unremarkable. The calvarium is intact. Paranasal sinus mucosal thickening. IMPRESSION: No acute intracranial hemorrhage, midline shift, or mass effect. Electronically signed by: Hammad Freeman MD 05/03/23 20:17 PM Code Status & VTE Plan VTE Prophylaxis Plan VTE Prophylaxis will be ordered: Yes PG Care Time/CCT Total # of Minutes Spent Total Time Spent with Patient: Total time spent is greater than 50% in coordination of care (as documented) at patient's floor/unit and/or counseling patient: Coding Level of Care Code 20998 INT INP/OBS CARE 2/55MIN Diagnoses Acute alcoholic gastritis K29.20 Metabolic acidosis, increased anion gap (IAG) E87.29 High serum osmolar gap R74.8 Alcohol abuse with withdrawal F10.139 Elevated transaminase level R74.01 Benign essential hypertension I10 Gout M10.9
[2023-05-04] MEDS ORDERED: Ativan PO Alcohol Withdrawal--Active Protocol PO PRN (07:50)
[2023-05-04] MEDS ORDERED: LORazepam 1 MG TAB PO PRN ×3 (07:50)
--- NOTE | 2023-05-04 08:07 | XRay Report ---
XR chest 1V portable HISTORY: 52 years-old Male vomitting acute nausea with vomiting COMPARISON: CTA chest of same day TECHNIQUE: AP view of the chest. FINDINGS: Cardiomediastinal and hilar silhouettes are within normal limits. Mild right hemidiaphragmatic elevat ion. No pneumothorax, pleural effusion, airspace consolidation or overt pulmonary edema. Bones appear grossly intact. IMPRESSION: No acute process. ACT 112: Negative or not required by law. The above report was generated using voice recognition software. It may contain grammatical, syntax o r spelling errors. Electronically signed by: Tom Arredondo M.D. 05/04/2023 8:05 AM
[2023-05-04 08:33] LABS: Hematocrit (blood only) 30.1 % (42.0-52.0); Hemoglobin 10.3 g/dl (14.0-18.0); Mean Corpuscular Hemoglobin 37.5 pg (25.0-34.0); Mean Corpuscular Hgb Conc 34.2 g/dL (32.0-36.0); Mean Corpuscular Volume 109.5 fL (80.0-100.0); Mean Platelet Volume 11.9 fL (9.4-12.4); Platelet Count 48 K/uL (130-400); RDW Coefficient of Variation 14.4 % (11.5-14.5); RDW Standard Deviation 57.1 fL (36.4-46.3); Red Blood Count 2.75 M/uL (4.70-6.10); White Blood Count 3.71 K/ul (4.8-10.8)
[2023-05-04 08:36] LABS: Albumin Globulin Ratio 1.4 (0.9-2); Albumin Level 3.4 gm/dl (3.4-5.0); BUN Creatinine Ratio 12.1 (10-20); Bilirubin,Total 3.2 mg/dl (0.2-1.0); Calcium 8.7 mg/dl (8.6-10.3); Creatinine Clr Calc Pharmacy 210.9 ml/min; Est GFR (African American) 137.8 ml/min; Est GFR (Non-African American) 118.9 ml/min; Globulin 2.5 gm/dl (2.5-4.0); Potassium 3.8 mmol/L (3.5-5.1); Total Protein 5.9 gm/dl (6.0-8.3)
[2023-05-04 08:46] LABS: Basophils # (auto) 0.01 K/uL (0-0.2); Basophils % (auto) 0.3 %; Immature Granulocytes # (auto) 0.02 K/uL (0.01-0.20); Immature Granulocytes % (auto) 0.5 %; Lymphocytes # (auto) 0.51 K/uL (1.2-3.4); Lymphocytes % (auto) 13.7 %; Macrocytosis Present; Monocytes # (auto) 0.56 K/uL (0.11-0.59); Monocytes % (auto) 15.1 %; Neutrophils # (auto) 2.61 K/uL (1.40-6.50); Neutrophils % (auto) 70.4 %; Polychromasia 1+
[2023-05-04] MEDS: THIAMINE HCL 100 MG in SYRINGE 9 ML IV SCH (10:07)
[2023-05-04] MEDS: FOLIC ACID 1 MG TAB PO SCH (10:07)
[2023-05-04] MEDS: PANTOprazole 40 MG in SYRINGE 0 ML IV SCH ×2 (10:07→20:15)
[2023-05-04] MEDS: BUPRENORPHINE/NALOXONE 2/0.5MG 1 TAB PO SCH ×2 (11:09→20:14)
[2023-05-04] MEDS: CYANOCOBALAMIN (B-12) 500 MCG TABLET PO SCH (11:09)
[2023-05-04] MEDS: HEPARIN SOD 5,000 UNIT/0.5 ML VIAL SQ SCH ×2 (11:09→20:13)
[2023-05-04] MEDS: allopurinoL 300 MG TAB PO SCH (11:09)
[2023-05-04] MEDS: LACTATED RINGER'S 1,000 ML IV SCH (17:53)
[2023-05-04 17:59] LABS: Hemoglobin 10.4 g/dl (14.0-18.0)
[2023-05-04 18:17] LABS: Calcium 9.1 mg/dl (8.6-10.3); Creatinine Clr Calc Pharmacy 203.9 ml/min; Est GFR (African American) 135.9 ml/min; Est GFR (Non-African American) 117.2 ml/min; Potassium 3.7 mmol/L (3.5-5.1); Uric Acid 4.7 mg/dl (2.6-7.2)
[2023-05-04] MEDS: carvediloL 6.25 MG TAB PO SCH (20:14)
[2023-05-04] MEDS: buPROPion SR 150 MG TABCR PO SCH (20:14)
--- NOTE | 2023-05-04 22:38 | Hospitalist Progress Note ---
Date of Service May 04, 2023 Assessment & Plan (1) Acute alcoholic gastritis: Plan: Patient presents with refractory nausea and vomiting and vomiting brown vomitus. Hemoglobin stable at 11. Hemoglobin has remained stable on 05/04 No evidence of acute bleed at this time. Agree that patient may have alcoholic gstritis. Will consult GI. Continue IV PPI/ (2) Metabolic acidosis, increased anion gap (IAG): Plan: Patient found to have elevated anion gap of 24 with metabolic acidosis. Likely secondary to volume depletion.Anion gap has improved. will hold off further fomepizole. (3) High serum osmolar gap: Plan: Patient measured osmolality 316 calculated osmolality is 299 producing osmolar gap of 17 Patient has a history of alcohol dependence and the presence of elevated anion gap and elevated osmolar gap, possible ethylene glycol or other alcohol ingestion suspected and patient was given a dose of fomepizole in the ED. Ethylene glycol level sent. Remaining dose of fomepizole 10 mg/kg dose every 12 hours for 4 doses to be continued every 12 hours after the loading dose. Discussed with pharmacy regarding this Fortunately renal function within normal limits goes against any ethylene glycol toxicity at this time. This has been improving. (4) Alcohol abuse with withdrawal: Plan: Patient admits to daily alcohol consumption Patient will be placed on CIWA protocol with close monitoring IV Protonix for acute gastritis (5) Elevated transaminase level: Plan: Patient found to have elevated transaminase level with AST being 147 and ALT being 44 consistent with alcohol use. Alcohol cessation discussed with patient (6) Benign essential hypertension: Plan: Continue home dose of carvedilol . Monitor blood pressure trend and titrate meds as tolerated. (7) Gout: Plan: No evidence of acute exacerbation noted continue allopurinol at home dose Check uric acid level Admission and Anticipated Discharge Date Admission Date: May 03, 2023 Subjective Patient reports no new symptoms. Patient reports he has had no vomiting today. He does have some nausea. Review of Systems Review of Systems: All systems reviewed & are unremarkable except as noted in HPI & below Physical Exam Physical Exam: Head and ENT no thyroid enlargement trachea midline Cardiovascular S1-S2 are normal no S3 Lungs bilateral air entry fair no wheezing Abdomen soft nondistended positive bowel sounds no rebound tenderness Extremity shows minimal edema Neurologically no focal deficits mild asterixis Skin shows no rash no cyanosis Results & Data Results & Data Vital Signs (Past 12 Hours) Vital Signs Temp Pulse Pulse Resp BP Pulse Ox O2 Del Method 05/04/23 19:59 36.9 C 110 H 18 156/94 H 93 Room Air 05/04/23 16:48 105 H 05/04/23 15:39 36.8 C 104 H 18 160/94 H 94 Nasal Cannula 05/04/23 12:02 37.0 C 106 H 18 157/91 H 95 Nasal Cannula 05/04/23 11:33 Nasal Cannula O2 Flow Rate 05/04/23 19:59 05/04/23 16:48 05/04/23 15:39 3 05/04/23 12:02 3 05/04/23 11:33 3 PG Care Time/CCT Total # of Minutes Spent Total Time Spent with Patient: Total time spent is greater than 50% in coordination of care (as documented) at patient's floor/unit and/or counseling patient: Coding Level of Care Code 94545 SUB INP/OBS CARE 2/35MIN Diagnoses Acute alcoholic gastritis K29.20 Metabolic acidosis, increased anion gap (IAG) E87.29 High serum osmolar gap R74.8 Alcohol abuse with withdrawal F10.139 Elevated transaminase level R74.01 Benign essential hypertension I10 Gout M10.9
[2023-05-05] MEDS: LACTATED RINGER'S 1,000 ML IV SCH (06:27)
[2023-05-05 07:04] LABS: Hematocrit (blood only) 28.7 % (42.0-52.0); Hemoglobin 9.9 g/dl (14.0-18.0); Mean Corpuscular Hemoglobin 36.9 pg (25.0-34.0); Mean Corpuscular Hgb Conc 34.5 g/dL (32.0-36.0); Mean Corpuscular Volume 107.1 fL (80.0-100.0); Platelet Count 56 K/uL (130-400); RDW Coefficient of Variation 14.3 % (11.5-14.5); RDW Standard Deviation 55.4 fL (36.4-46.3); Red Blood Count 2.68 M/uL (4.70-6.10); White Blood Count 3.08 K/ul (4.8-10.8)
[2023-05-05 07:24] LABS: Albumin Globulin Ratio 1.3 (0.9-2); Albumin Level 3.2 gm/dl (3.4-5.0); BUN Creatinine Ratio 10.7 (10-20); Bilirubin,Total 1.7 mg/dl (0.2-1.0); Calcium 8.7 mg/dl (8.6-10.3); Creatinine Clr Calc Pharmacy 218.3 ml/min; Est GFR (African American) 139.8 ml/min; Est GFR (Non-African American) 120.6 ml/min; Globulin 2.5 gm/dl (2.5-4.0); Potassium 3.4 mmol/L (3.5-5.1); Total Protein 5.7 gm/dl (6.0-8.3)
[2023-05-05 07:51] LABS: Prothrombin Time 10.8 Seconds (9.0-12.0)
[2023-05-05] MEDS: allopurinoL 300 MG TAB PO SCH (09:34)
[2023-05-05] MEDS: CYANOCOBALAMIN (B-12) 500 MCG TABLET PO SCH (09:34)
[2023-05-05] MEDS: BUPRENORPHINE/NALOXONE 2/0.5MG 1 TAB PO SCH ×2 (09:34→19:59)
[2023-05-05] MEDS: FOLIC ACID 1 MG TAB PO SCH (09:34)
[2023-05-05] MEDS: THIAMINE HCL 100 MG in SYRINGE 9 ML IV SCH (09:35)
[2023-05-05] MEDS: HEPARIN SOD 5,000 UNIT/0.5 ML VIAL SQ SCH ×2 (09:35→20:00)
--- NOTE | 2023-05-05 10:40 | Gastrointestinal Consultation ---
Date of Consultation May 05, 2023 Assessment & Plan (1) Acute alcoholic gastritis: Pleasant man going through emotional times who is drinking far too much. I believe the vomiting was purely related to over consumption of alcohol and the brown emesis evidence of alcoholic gastritis. I don't see a need to do EGD since he has stopped vomiting. He does need to set up colonoscopy as an outpatient. EGD could be done then if he is still having issues. I counseled him about his alcohol abuse and the need to stop. he realizes it. History of Present Illness Reason for Consultation: vomiting Attending Physician: Moises Ellis History of Present Illness 52 year old man who has been drinking heavily ever since he went through a divorce six years ago. He says that for the past week he hasn't been eating and he has just been drinking. He goes through a handle of alcohol every two days. He states that he started vomiting and his emesis was brown. He was advised to come to ER. He has not vomited since he was admitted. H/H have remained stable. His labs do suggest some mild alcoholic hepatitis. He has never had an EGD before. He has not had his colonoscopy. Allergies Allergy/AdvReac Type Severity Reaction Status Date / Time Penicillins Allergy Verified 04/12/23 13:57 Home Medications Medication Instructions Recorded Confirmed Type buprenorphine 8 mg-naloxone 2 mg 1 ea buccal BID 01/27/20 05/03/23 History sublingual film allopurinol 300 mg tablet 300 mg PO DAILY #90 tabs 04/12/23 05/03/23 Rx bupropion HCl 150 mg tablet,12 hr 150 mg PO QPM 04/12/23 05/03/23 History sustained-release carvedilol 6.25 mg tablet 6.25 mg PO QPM 04/12/23 05/03/23 History cyanocobalamin (vitamin B-12) 500 mcg PO .TODAY 05/03/23 05/03/23 History 1,000 mcg tablet (Vitamin B-12) Patient History Medical History Hypercholesterolemia Hypertension URI (upper respiratory infection) Surgical History History of oral surgery History of vasectomy Status post LASIK surgery Bilateral Family History Father Prostate cancer Grandfather (Maternal) Myocardial infarction Aneurysm Grandfather (Paternal) Myocardial infarction Denies family history of Ovarian cancer Breast cancer Colorectal cancer Social History Smoking Status: Former smoker Second Hand Exposure: No; Do You Dip or Chew Tobacco: No; Hx Alcohol Use: Yes Alcohol type: hard liquor Alcohol Intake Frequency: 2-4 x/Month Alcohol Intake Frequency Comment: daily 1-2 pts Hx Substance Use: No Preferred Language: Tam[place] Communication Ability: Effective Farmer General Required: No Beliefs That Will Affect Care: None marital status: Current Living Situation: Parent Current Living Situation Comment: Living w parents current occupational status: employed Other Information That Helps Us Care for You: No Feels Safe at Home: Yes Safety Concerns: Feels Safe At This Time caffeine: Yes Dental Care, Regularly: Yes Physical Activity Frequency: Daily Physical Activity Frequency Comment: Walking Seatbelt Use: always Sunscreen Use: No Assistive Devices: Denture - Upper and Glasses Assistive Devices Comment: used to wear CPAP Review of Systems Review of Systems: All systems reviewed & are unremarkable except as noted in HPI & below Physical Exam Constitutional: WD/WN, vitals as above no acute distress Eyes: PERRL, conjunctivae normal, anicteric sclerae ENMT: external ear and nose normal, oropharynx normal Neck: trachea midline, no thyromegaly Respiratory: normal respiratory effort, lungs clear to auscultation Cardiovascular: RRR, no murmur, no edema Gastrointestinal (Abdomen): normal bowel sounds, soft, nontender, no hepatosplenomegaly Musculoskeletal: Extremities: no cyanosis and no clubbing Skin: no rashes, warm and dry Neurologic: PERRL, EOMI, accommodation nl, no face palsy, no dysarthria Psychiatric: Orientation: alert and oriented x 3 Results & Data Vital Signs (Past 12 Hours) Vital Signs Temp Pulse Resp BP Pulse Ox O2 Del Method O2 Flow Rate 05/05/23 07:43 36.7 C 101 H 16 160/94 H 96 Nasal Cannula 3 05/05/23 02:52 36.6 C 99 H 18 152/91 H 95 Nasal Cannula 2 05/04/23 23:10 37 C 100 H 18 164/97 H 90 Room Air Laboratory Results 05/05/23 05/05/23 05/05/23 Range/Units 06:28 06:28 06:28 WBC (4.8-10.8) K/ul RBC (4.70-6.10) M/uL Hgb (14.0-18.0) g/dl Hct (42.0-52.0) % MCV (80.0-100.0) fL MCH (25.0-34.0) pg MCHC (32.0-36.0) g/dL RDW Std Deviation (36.4-46.3) fL RDW Coeff of Jordan (11.5-14.5) % Plt Count (130-400) K/uL MPV (9.4-12.4) fL PT 10.8 (9.0-12.0) Seconds INR 1.0 (0.9-1.1) Sodium 140 (136-145) mmol/L Potassium 3.4 L (3.5-5.1) mmol/L Chloride 96 L (98-107) mmol/L Carbon Dioxide 36 H (21-32) mmol/L Anion Gap 8 (3-11) BUN 6 (6-23) mg/dl Creatinine 0.56 L (0.6-1.4) mg/dl Est Cr Clr Drug Dosing 218.3 ml/min Est GFR ( Amer) 139.8 ml/min Est GFR (Non-Af Amer) 120.6 ml/min BUN/Creatinine Ratio 10.7 (10-20) Glucose 105 H (70-99(Fasting)) mg/dl Uric Acid (2.6-7.2) mg/dl Calcium 8.7 (8.6-10.3) mg/dl Total Bilirubin 1.7 H (0.2-1.0) mg/dl AST 72 H (13-39) U/L ALT 30 (7-52) U/L Alkaline Phosphatase 114 H (34-104) U/L Ammonia 43.0 (18-72) umol/L Total Protein 5.7 L (6.0-8.3) gm/dl Albumin 3.2 L (3.4-5.0) gm/dl Globulin 2.5 (2.5-4.0) gm/dl Albumin/Globulin Ratio 1.3 (0.9-2) 05/05/23 05/04/23 05/04/23 Range/Units 06:28 16:45 16:45 WBC 3.08 L (4.8-10.8) K/ul RBC 2.68 L (4.70-6.10) M/uL Hgb 9.9 L 10.4 L (14.0-18.0) g/dl Hct 28.7 L 30.0 L (42.0-52.0) % MCV 107.1 H (80.0-100.0) fL MCH 36.9 H (25.0-34.0) pg MCHC 34.5 (32.0-36.0) g/dL RDW Std Deviation 55.4 H (36.4-46.3) fL RDW Coeff of Jordan 14.3 (11.5-14.5) % Plt Count 56 L (130-400) K/uL MPV 12.0 (9.4-12.4) fL PT (9.0-12.0) Seconds INR (0.9-1.1) Sodium 138 (136-145) mmol/L Potassium 3.7 (3.5-5.1) mmol/L Chloride 95 L (98-107) mmol/L Carbon Dioxide 30 (21-32) mmol/L Anion Gap 13 H (3-11) BUN 6 (6-23) mg/dl Creatinine 0.60 (0.6-1.4) mg/dl Est Cr Clr Drug Dosing 203.9 ml/min Est GFR ( Amer) 135.9 ml/min Est GFR (Non-Af Amer) 117.2 ml/min BUN/Creatinine Ratio 10.0 (10-20) Glucose 106 H (70-99(Fasting)) mg/dl Uric Acid 4.7 (2.6-7.2) mg/dl Calcium 9.1 (8.6-10.3) mg/dl Total Bilirubin (0.2-1.0) mg/dl AST (13-39) U/L ALT (7-52) U/L Alkaline Phosphatase (34-104) U/L Ammonia (18-72) umol/L Total Protein (6.0-8.3) gm/dl Albumin (3.4-5.0) gm/dl Globulin (2.5-4.0) gm/dl Albumin/Globulin Ratio (0.9-2) Diagnostic Findings Chest X-Ray 05/03/23 19:18 XR chest 1V portable HISTORY: 52 years-old Male vomitting acute nausea with vomiting COMPARISON: CTA chest of same day TECHNIQUE: AP view of the chest. FINDINGS: Cardiomediastinal and hilar silhouettes are within normal limits. Mild right hemidiaphragmatic elevation. No pneumothorax, pleural effusion, airspace consolidation or overt pulmonary edema. Bones appear grossly intact. IMPRESSION: No acute process. ACT 112: Negative or not required by law. The above report was generated using voice recognition software. It may contain grammatical, syntax or spelling errors. Electronically signed by: Tom Arredondo M.D. 05/04/2023 8:05 AM Abdomen/Pelvis CT 05/03/23 19:20 Exam(s): CT ABDOMEN + PELVIS With Contrast IV Amt: 114ml optiray 320 EXAM: CT Abdomen and Pelvis With Intravenous Contrast CLINICAL HISTORY: Reason for exam: nv. TECHNIQUE: Axial computed tomography images of the abdomen and pelvis with intravenous contrast. Automated exposure control was utilized for the study. A dose lowering technique was utilized adhering to the principles of ALARA. CONTRAST: Patient received 114ml optiray 320 of IV contrast COMPARISON: No relevant prior studies available. FINDINGS: Lung bases: Unremarkable. No mass. No consolidation. ABDOMEN: Liver: Severe hepatic steatosis. Gallbladder and bile ducts: Unremarkable. No calcified stones. No ductal dilation. Pancreas: Unremarkable. No mass. No ductal dilation. Spleen: Unremarkable. No splenomegaly. Adrenals: Unremarkable. No mass. 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 RIGHT renal cysts measuring up to 15 mm. No hydronephrosis. Stomach and bowel: Unremarkable. No obstruction. No mucosal thickening. PELVIS: Appendix: No findings to suggest acute appendicitis. Bladder: Unremarkable. No mass. Reproductive: Unremarkable as visualized. ABDOMEN and PELVIS: Intraperitoneal space: Unremarkable. No free air. No significant fluid collection. Bones/joints: Degenerative changes of the spine. No acute fracture. No dislocation. Soft tissues: Unremarkable. Vasculature: Atherosclerotic changes of the aorta. No abdominal aortic aneurysm. Lymph nodes: Unremarkable. No enlarged lymph nodes. IMPRESSION: No acute diverticulitis. No small bowel obstruction. No free intraperitoneal air. Electronically signed by: Hammad Freeman MD 05/03/23 20:21 PM Chest CTA 05/03/23 19:20 Exam(s): CTA CHEST IV Amt: 114ml optiray 320 EXAM: CT Angiography Chest With Intravenous Contrast CLINICAL HISTORY: Reason for exam: hypoxia. TECHNIQUE: Axial computed tomographic angiography images of the chest with intravenous contrast. Automated exposure control was utilized for the study. A dose lowering technique was utilized adhering to the principles of ALARA. MIP reconstructed images were created and reviewed. COMPARISON: No relevant prior studies available. FINDINGS: LUNGS: No focal consolidation, pleural effusion, or pneumothorax. HEART: Within normal limits. VASCULATURE: No large or central pulmonary embolism. Evaluation is limited due to suboptimal contrast bolus timing. The need for repeat exam should be determined clinically. THYROID: Within normal limits. MEDIASTINUM + LYMPH NODES: There are no pathologically enlarged mediastinal, hilar, or axillary lymph nodes. SUPERIOR ABDOMEN: Severe hepatic steatosis. MUSCULOSKELETAL: Within normal limits. IMPRESSION: No large or central pulmonary embolism. Evaluation is limited due to suboptimal contrast bolus timing. The need for repeat exam should be determined clinically. No focal infiltrate, pleural effusion, or pneumothorax. Electronically signed by: Hammad Freeman MD 05/03/23 20:[address] 05/03/23 19:36 Exam(s): CT HEAD Without Contrast EXAM: CT Head Without Intravenous Contrast CLINICAL HISTORY: Reason for exam: ams. TECHNIQUE: Axial computed tomography images of the head/brain without intravenous contrast. Automated exposure control was utilized for the study. A dose lowering technique was utilized adhering to the principles of ALARA. COMPARISON: No relevant prior studies available. FINDINGS: No acute intracranial hemorrhage. No midline shift or mass effect. The territorial reyez-white matter differentiation is maintained throughout. The ventricles and sulci are commensurate with age. The visualized orbits appear grossly unremarkable. The calvarium is intact. Paranasal sinus mucosal thickening. IMPRESSION: No acute intracranial hemorrhage, midline shift, or mass effect. Electronically signed by: Hammad Freeman MD 05/03/23 20:17 PM
[2023-05-05] MEDS ORDERED: chlordiazePOXIDE ALCOHOL WITHDRAWL 25MG PO STA (15:29)
[2023-05-05] MEDS: chlordiazePOXIDE HCl 25 MG CAP PO SCH ×2 (16:50→21:10)
[2023-05-05] MEDS: carvediloL 6.25 MG TAB PO SCH (19:59)
[2023-05-05] MEDS: buPROPion SR 150 MG TABCR PO SCH (20:00)
--- NOTE | 2023-05-05 22:33 | Hospitalist Progress Note ---
Date of Service May 05, 2023 Assessment & Plan (1) Acute alcoholic gastritis: Plan: Patient presents with refractory nausea and vomiting and vomiting brown vomitus. Hemoglobin stable at 11. Hemoglobin has remained stable on 05/04 No evidence of acute bleed at this time. Agree that patient may have alcoholic gstritis. Will consult GI. Appreciate input Continue IV PPI. (2) Metabolic acidosis, increased anion gap (IAG): Plan: Patient found to have elevated anion gap of 24 with metabolic acidosis. Likely secondary to volume depletion.Anion gap has improved. will hold off further fomepizole. (3) High serum osmolar gap: Plan: Patient measured osmolality 316 calculated osmolality is 299 producing osmolar gap of 17 Patient has a history of alcohol dependence and the presence of elevated anion gap and elevated osmolar gap, possible ethylene glycol or other alcohol ingestion suspected and patient was given a dose of fomepizole in the ED. Ethylene glycol level sent. Remaining dose of fomepizole 10 mg/kg dose every 12 hours for 4 doses to be continued every 12 hours after the loading dose. Discussed with pharmacy regarding this Fortunately renal function within normal limits goes against any ethylene glycol toxicity at this time. This has been improving. Likely due to ethanol. (4) Alcohol abuse with withdrawal: Plan: Patient admits to daily alcohol consumption Patient will be placed on CIWA protocol with close monitoring IV Protonix for acute gastritis will place patient on librium taper, to prevent withdrawal. (5) Elevated transaminase level: Plan: Patient found to have elevated transaminase level with AST being 147 and ALT being 44 consistent with alcohol use. Alcohol cessation discussed with patient (6) Benign essential hypertension: Plan: Continue home dose of carvedilol . Monitor blood pressure trend and titrate meds as tolerated. (7) Gout: Plan: No evidence of acute exacerbation noted continue allopurinol at home dose Check uric acid level Admission and Anticipated Discharge Date Admission Date: May 03, 2023 Subjective 52 yo male reports no new symptoms. Review of Systems Review of Systems: All systems reviewed & are unremarkable except as noted in HPI & below Physical Exam Physical Exam: Head and ENT no thyroid enlargement trachea midline Cardiovascular S1-S2 are normal no S3 Lungs bilateral air entry fair no wheezing Abdomen soft nondistended positive bowel sounds no rebound tenderness Extremity shows minimal edema Neurologically no focal deficits mild asterixis Skin shows no rash no cyanosis Results & Data Results & Data Vital Signs (Past 12 Hours) Vital Signs Temp Pulse Pulse Resp BP Pulse Ox O2 Del Method 05/05/23 20:11 36.8 C 89 18 149/82 H 97 Nasal Cannula 05/05/23 17:46 Nasal Cannula 05/05/23 15:36 36.9 C 102 H 20 166/103 H 98 Nasal Cannula 05/05/23 15:17 99 H 05/05/23 12:01 37.0 C 89 18 163/96 H 96 Nasal Cannula O2 Flow Rate 05/05/23 20:11 3 05/05/23 17:46 3 05/05/23 15:36 3 05/05/23 15:17 05/05/23 12:01 3 PG Care Time/CCT Total # of Minutes Spent Total Time Spent with Patient: Total time spent is greater than 50% in coordination of care (as documented) at patient's floor/unit and/or counseling patient: Coding Level of Care Code 01676 SUB INP/OBS CARE 2/35MIN Diagnoses Acute alcoholic gastritis K29.20 Metabolic acidosis, increased anion gap (IAG) E87.29 High serum osmolar gap R74.8 Alcohol abuse with withdrawal F10.139 Elevated transaminase level R74.01 Benign essential hypertension I10 Gout M10.9
[2023-05-06] MEDS: chlordiazePOXIDE HCl 25 MG CAP PO SCH ×4 (03:09→23:57)
--- NOTE | 2023-05-06 09:02 | Gastroenterology Progress Note ---
Supervising physicians note Case and plan of care discussed with Trish Rockwell NP. No further vomiting. No further symptoms. Will sign off Hilda Stevens Jr, MD, FACG Date of Service May 06, 2023 Assessment & Plan (1) Acute alcoholic gastritis: Plan: Acute alcoholic gastritis: Patient has no voiced GI complaints this morning. He tolerated breakfast without difficulty. Anticipate discharge to home with outpatient alcohol counseling. Plan for outpatient follow-up with GI and will facilitate appointment scheduling. GI service will sign off, please reconsult if needed. Elevated LFTs: Likely due to acute alcoholism. We will follow-up as outpatient. Case reviewed with Dr. Stevens. Please refer to supervising physician addendum for further recommendations. I have spent 15 minutes of discrete time performing the activities of this visit which include but are not limited to review of the medical record, obtaining a history, physical exam, and entering information in the electronic record. Admission and Anticipated Discharge Date Admission Date: May 03, 2023 Subjective Patient awake alert and oriented sitting in position of comfort on the bed. He denies any difficulty overnight related to GI. No nausea, vomiting, abdominal pain. Lashanda rated breakfast without difficulty. Last bowel movement yesterday without blood noted in stool. 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 Reports mother did discard all alcohol in the home. Reports that he plans to follow-up for alcohol abuse with outpatient therapy. Review of Systems Review of Systems: All systems reviewed & are unremarkable except as noted in Subjective Physical Exam Gastrointestinal (Abdomen): normal bowel sounds, soft, nontender, no hepatosplenomegaly Results & Data Vital Signs (Past 12 Hours) Vital Signs Temp Pulse Pulse Resp BP Pulse Ox O2 Del Method 05/06/23 08:05 36.6 C 101 H 18 135/82 93 Room Air 05/06/23 05:59 84 05/06/23 03:30 36.8 C 101 H 18 130/78 92 Room Air 05/05/23 23:28 37.0 C 83 18 110/78 99 Nasal Cannula 05/05/23 22:02 86 O2 Flow Rate 05/06/23 08:05 05/06/23 05:59 05/06/23 03:30 05/05/23 23:28 3 05/05/23 22:02
[2023-05-06] MEDS: allopurinoL 300 MG TAB PO SCH (09:29)
[2023-05-06] MEDS: FOLIC ACID 1 MG TAB PO SCH (09:30)
[2023-05-06] MEDS: HEPARIN SOD 5,000 UNIT/0.5 ML VIAL SQ SCH ×2 (09:30→21:20)
[2023-05-06] MEDS: CYANOCOBALAMIN (B-12) 500 MCG TABLET PO SCH (09:30)
[2023-05-06] MEDS: THIAMINE HCL 100 MG in SYRINGE 9 ML IV SCH (09:30)
[2023-05-06] MEDS: BUPRENORPHINE/NALOXONE 2/0.5MG 1 TAB PO SCH ×2 (09:38→21:19)
[2023-05-06 11:37] LABS: Hematocrit (blood only) 29.9 % (42.0-52.0); Hemoglobin 10.3 g/dl (14.0-18.0); Mean Corpuscular Hemoglobin 37.6 pg (25.0-34.0); Mean Corpuscular Hgb Conc 34.4 g/dL (32.0-36.0); Mean Corpuscular Volume 109.1 fL (80.0-100.0); Mean Platelet Volume 11.9 fL (9.4-12.4); Platelet Count 78 K/uL (130-400); RDW Coefficient of Variation 14.6 % (11.5-14.5); RDW Standard Deviation 57.8 fL (36.4-46.3); Red Blood Count 2.74 M/uL (4.70-6.10); White Blood Count 4.23 K/ul (4.8-10.8)
[2023-05-06 11:51] LABS: Calcium 8.9 mg/dl (8.6-10.3); Potassium 3.2 mmol/L (3.5-5.1)
[2023-05-06 11:57] LABS: BUN Creatinine Ratio 14.6 (10-20); Creatinine Clr Calc Pharmacy 250.9 ml/min; Est GFR (African American) 148.9 ml/min; Est GFR (Non-African American) 128.5 ml/min
[2023-05-06] MEDS ORDERED: chlordiazePOXIDE HCl 25 MG CAP PO STA (17:16)
[2023-05-06] MEDS ORDERED: chlordiazePOXIDE ALCOHOL WITHDRAWL 25MG PO STA (17:18)
[2023-05-06] MEDS ORDERED: chlordiazePOXIDE HCl 25 MG CAP PO SCH (20:00)
[2023-05-06] MEDS: carvediloL 6.25 MG TAB PO SCH (21:19)
[2023-05-06] MEDS: buPROPion SR 150 MG TABCR PO SCH (21:20)
--- NOTE | 2023-05-06 22:46 | Hospitalist Progress Note ---
Date of Service May 06, 2023 Assessment & Plan (1) Acute alcoholic gastritis: Plan: Patient presents with refractory nausea and vomiting and vomiting brown vomitus. Hemoglobin stable at 11. Hemoglobin has remained stable on / No evidence of acute bleed at this time. Agree that patient may have alcoholic gstritis. Will consult GI. Appreciate input Continue IV PPI. concern patient may be going through alcohol withdrawl, with eleavted HR. will restart librium taper back at q8h hours. will also give addditional dose of 25 mg of librium (2) Metabolic acidosis, increased anion gap (IAG): Plan: Patient found to have elevated anion gap of 24 with metabolic acidosis. Likely secondary to volume depletion.Anion gap has improved. will hold off further fomepizole. (3) High serum osmolar gap: Plan: Patient measured osmolality 316 calculated osmolality is 299 producing osmolar gap of 17 Patient has a history of alcohol dependence and the presence of elevated anion gap and elevated osmolar gap, possible ethylene glycol or other alcohol ingestion suspected and patient was given a dose of fomepizole in the ED. Ethylene glycol level sent. Remaining dose of fomepizole 10 mg/kg dose every 12 hours for 4 doses to be continued every 12 hours after the loading dose. Discussed with pharmacy regarding this Fortunately renal function within normal limits goes against any ethylene glycol toxicity at this time. This has been improving. Likely due to ethanol. (4) Alcohol abuse with withdrawal: Plan: Patient admits to daily alcohol consumption Patient will be placed on CIWA protocol with close monitoring IV Protonix for acute gastritis will place patient on librium taper, to prevent withdrawal. (5) Elevated transaminase level: Plan: Patient found to have elevated transaminase level with AST being 147 and ALT being 44 consistent with alcohol use. Alcohol cessation discussed with patient (6) Benign essential hypertension: Plan: Continue home dose of carvedilol . Monitor blood pressure trend and titrate meds as tolerated. (7) Gout: Plan: No evidence of acute exacerbation noted continue allopurinol at home dose Check uric acid level Admission and Anticipated Discharge Date Admission Date: May 03, 2023 Subjective Patient reports feeling well. Nurse reported patient had SVT of 170 while defecating. HR has been low 90-100. Review of Systems Review of Systems: All systems reviewed & are unremarkable except as noted in HPI & below Physical Exam Physical Exam: Head and ENT no thyroid enlargement trachea midline Cardiovascular S1-S2 are normal no S3 Lungs bilateral air entry fair no wheezing Abdomen soft nondistended positive bowel sounds no rebound tenderness Extremity shows minimal edema Neurologically no focal deficits mild asterixis Skin shows no rash no cyanosis Results & Data Results & Data Vital Signs (Past 12 Hours) Vital Signs Temp Pulse Pulse Resp BP Pulse Ox O2 Del Method 05/06/23 21:02 36.6 C 93 H 18 130/86 94 Room Air 05/06/23 18:48 36.9 C 94 H 18 143/81 H 97 Room Air 05/06/23 16:41 174 H 05/06/23 14:16 80 05/06/23 14:58 36.7 C 93 H 18 149/85 H 93 Room Air 05/06/23 11:57 36.4 C L 86 16 143/87 H 94 Room Air PG Care Time/CCT Total # of Minutes Spent Total Time Spent with Patient: Total time spent is greater than 50% in coordination of care (as documented) at patient's floor/unit and/or counseling patient: Coding Level of Care Code 31535 SUB INP/OBS CARE 2/35MIN Diagnoses Acute alcoholic gastritis K29.20 Metabolic acidosis, increased anion gap (IAG) E87.29 High serum osmolar gap R74.8 Alcohol abuse with withdrawal F10.139 Elevated transaminase level R74.01 Benign essential hypertension I10 Gout M10.9
[2023-05-07] MEDS: chlordiazePOXIDE HCl 25 MG CAP PO SCH ×2 (05:55→12:13)
[2023-05-07] MEDS: THIAMINE HCL 100 MG in SYRINGE 9 ML IV SCH (07:59)
[2023-05-07] MEDS: CYANOCOBALAMIN (B-12) 500 MCG TABLET PO SCH (08:02)
[2023-05-07] MEDS: allopurinoL 300 MG TAB PO SCH (08:02)
[2023-05-07] MEDS: BUPRENORPHINE/NALOXONE 2/0.5MG 1 TAB PO SCH (08:02)
[2023-05-07] MEDS: FOLIC ACID 1 MG TAB PO SCH (08:03)
[2023-05-07] MEDS: HEPARIN SOD 5,000 UNIT/0.5 ML VIAL SQ SCH (08:03)
[2023-05-07 11:45] LABS: Hematocrit (blood only) 30.6 % (42.0-52.0); Hemoglobin 10.6 g/dl (14.0-18.0); Mean Corpuscular Hemoglobin 37.7 pg (25.0-34.0); Mean Corpuscular Hgb Conc 34.6 g/dL (32.0-36.0); Mean Corpuscular Volume 108.9 fL (80.0-100.0); Mean Platelet Volume 11.6 fL (9.4-12.4); Platelet Count 93 K/uL (130-400); RDW Coefficient of Variation 14.7 % (11.5-14.5); RDW Standard Deviation 58.7 fL (36.4-46.3); Red Blood Count 2.81 M/uL (4.70-6.10); White Blood Count 4.14 K/ul (4.8-10.8)
[2023-05-07 11:58] LABS: Alanine Aminotransferase 31 U/L (7-52); Albumin Globulin Ratio 1.4 (0.9-2); Albumin Level 3.3 gm/dl (3.4-5.0); Alkaline Phosphatase 131 U/L (34-104); Anion Gap 4 (3-11); Aspartate Aminotransferase 61 U/L (13-39); BUN Creatinine Ratio 21.3 (10-20); Bilirubin Direct 0.4 mg/dl (0-0.2); Bilirubin,Total 0.9 mg/dl (0.2-1.0); Blood Urea Nitrogen 10 mg/dl (6-23); Calcium 9.1 mg/dl (8.6-10.3); Carbon Dioxide 37 mmol/L (21-32); Chloride 98 mmol/L (98-107); Creatinine Clr Calc Pharmacy 256.3 ml/min; Est GFR (African American) > 150.0 ml/min; Est GFR (Non-African American) 129.6 ml/min; Globulin 2.3 gm/dl (2.5-4.0); Glucose 107 mg/dl (70-99(Fasting)); Potassium 3.3 mmol/L (3.5-5.1); Sodium 139 mmol/L (136-145); Total Protein 5.6 gm/dl (6.0-8.3); Total Protein 5.8 gm/dl (6.0-8.3)
[2023-05-07] MEDS ORDERED: POTASSIUM CHLORIDE CRTAB 20 MEQ TABCR PO STA (12:43)
[2023-05-07 15:17] LABS: Methyl Alcohol Comment WHOLE BLOOD; Methyl Alcohol Level NONE DETECTED (NONE DETECTED)
[2023-05-07] MEDS ORDERED: chlordiazePOXIDE HCl 25 MG CAP PO SCH (20:00)
[2023-05-08] MEDS ORDERED: chlordiazePOXIDE HCl 25 MG CAP PO SCH (22:00)
[2023-05-09] MEDS ORDERED: chlordiazePOXIDE HCl 5 MG CAP PO SCH
[2023-05-10] MEDS ORDERED: chlordiazePOXIDE HCl 5 MG CAP PO SCH
[2023-05-11 12:03] LABS: MDA negative; MDEA negative; MDMA (Ecstasy) Urine, Confirm negative
== END 2023-05-07 13:38 | disposition home or self-care (01) | DRG 392 ==
LOC: ED 18:01 → 2W 23:55 → SUATTDRO 23:55 → 2W 05-04 00:45